=== PATIENT | male | born 1980 | race Caucasian/White ===

== ENCOUNTER 2023-11-02 12:54 | Outpatient (CLI) | payer OTHER ==
--- NOTE | 2023-11-02 18:17 | XRAY Report ---
PROCEDURE: Femur 2+V LT INDICATIONS: PAIN IN LEFT THIGH TECHNIQUE: 2 views of the femur were acquired. COMPARISON: None. FINDINGS: Bones: No fractures or dislocations. No suspicious bony lesions. Soft tissues: No suspicious soft tissue calcifications or masses. IMPRESSION: No acute bony abnormality. Reviewed by: Gilma Rocha MD on 11/02/2023 6:15 PM PST Approved by: Gilma Rocha MD on 11/02/2023 6:15 PM PST Station ID: [id number]
== END 2023-11-02 23:59 | disposition home or self-care (01) ==
LOC: DI.N 12:54
PROVIDERS: ATTEND Physician Assistant Medical
DX: M79.652 Pain in left thigh (principal)

== ENCOUNTER 2023-11-30 08:00 | Outpatient (CLI) | payer OTHER ==
--- NOTE | 2023-11-30 20:47 | XRAY Report ---
PROCEDURE: Femur LT INDICATIONS: LEFT FEMUR/THIGH PAIN TECHNIQUE: 4 views of the femur were acquired. COMPARISON: Left femur radiograph on November 02, 2023. FINDINGS: Bones: No fractures or dislocations. Normal alignment. No suspicious bony lesions. Soft tissues: No suspicious soft tissue calcifications or masses. No soft tissue swelling. IMPRESSION: No acute bony abnormality. Normal alignment. Reviewed by: Daniel Fitzgerald MD on 11/30/2023 8:46 PM PST Approved by: Dainel Fitzgerald MD on 11/30/2023 8:46 PM PST Station ID: [id number]
== END 2023-11-30 23:59 | disposition home or self-care (01) ==
LOC: DI.WOS 08:00
PROVIDERS: ATTEND Orthopaedic Surgery
DX: M79.652 Pain in left thigh (principal)

== ENCOUNTER 2023-12-16 19:34 | Emergency (ER) | payer OTHER ==
[2023-12-16 19:59] VITALS: BP 153/92
--- NOTE | 2023-12-16 20:49 | ED Physician Documentation ---
History of Present Illness - Stated complaint Stated Complaint: C+/CHILLS, BODYACHES, ANDRE - Chief complaint Chief Complaint: General - Additonal information Additional information: 43-year-old male presents emergency department for COVID. Patient said that he tested positive at home about a week ago his fiance called the nurse line and told her that he needed to come to the emergency department. He has no complaints of COVID no headache minimal sore throat that has overall improved and overall is feeling well. He said that he is just here because the nurse line told him to come in. PD PAST MEDICAL HISTORY - Past Medical History Past Medical History: Yes GI: GERD - Past Surgical History Past Surgical History: Yes - Allergies Allergies/Adverse Reactions: Allergies Allergy/AdvReac Type Severity Reaction Status Date / Time No Known Drug Allergies Allergy Verified 12/16/23 19:58 - Social History Does the pt smoke?: No Smoking Status: Never smoker Does the pt drink ETOH?: No Does the pt have substance abuse?: No - Immunizations Immunizations are current?: Yes - POLST Patient has POLST: No PD ED PE NORMAL - Vitals Vital signs reviewed: Yes - General General: Alert and oriented X 3, No acute distress, Well developed/nourished - HEENT HEENT: Atraumatic, PERRL, Pharynx benign - Neck Neck: Supple, no meningeal sign - Cardiac Cardiac: RRR, No gallop, Strong equal pulses - Respiratory Respiratory: No respiratory distress, Clear bilaterally - Abdomen Abdomen: Normal bowel sounds, Soft, Non tender, Non distended, No organomegaly - Psych Psych: Normal mood Results - Vitals Vitals: Vital Signs - 24 hr 12/16/23 12/16/23 19:51 22:00 Temperature 37.4 C Heart Rate 82 80 Respiratory 16 16 Rate Blood Pressure 153/92 H O2 Saturation 99 98 Oxygen O2 Source Room air PD Medical Decision Making - ED course ED course: 43yo male here for COVID 19, his symptoms have now fully resolved but he is here with his fiance who also COVID-19 and she called her primary care provider office who told them to come into the emergency department. Patient says that his symptoms have now fully resolved I asked him if he needed any additional resources or medications and he declined. Patient is safe for discharge I informed him that given that he has no symptoms and has been short of 7 days he is cleared to go back to work tomorrow all questions answered safe for discharge. Departure - Departure Disposition: 01 Home, Self Care Clinical Impression: COVID-19 Condition: Good Instructions: COVID-19 [facility] Comments: It sounds if you are overall recovering well from your COVID-19 symptoms. Today is a total of 7 days and it sounds like you are no longer having any significant symptoms and you are okay to go back to work tomorrow. You can alternate between Tylenol ibuprofen if your headache comes back. Please follow-up with your primary care provider as needed. Forms: PCP List Discharge Date/Time: 12/16/23 22:03
[2023-12-16 22:07] VITALS: O2SAT 98
== END 2023-12-16 22:03 | disposition home or self-care (01) ==
LOC: ED 19:34
DX: U07.1 COVID-19 (principal)
CPT/HCPCS: 99282